=== PATIENT | male | born 2000 | race Caucasian/White ===

== ENCOUNTER 2023-01-14 10:16 | Emergency (ER) | payer OTHER ==
[~2023-01-14] VITALS: Ht 172.7 cm; Wt 65.5 kg
[2023-01-14] MEDS ORDERED: ADVI200C8 PO (12:14)
[2023-01-14] MEDS ORDERED: IBUP-1022 PO (13:05)
[2023-01-14] MEDS ORDERED: IBUPROFEN 600MG TAB PO ONE (13:10)
[2023-01-14 13:34] VITALS: BP 107/66; TEMP 97.6; O2SAT 99
== END 2023-01-14 13:35 | disposition home or self-care (01) ==
LOC: M ED 10:16 → EDBD 10:16 → M ED 13:35
DX: S83.004A Unspecified dislocation of right patella, initial encounter (principal); X50.0XXA Overexertion from strenuous movement or load, initial encounter; Y92.89 Other specified places as the place of occurrence of the external cause; Y93.A2 Activity, calisthenics; Y99.1 Military activity